=== PATIENT | male | born 1950 | race Caucasian/White ===

== ENCOUNTER 2016-10-06 12:28 | Emergency (ER) | payer MEDICARE ==
[2016-10-06] MEDS ORDERED: LABETALOL INJ 5 MG/ML VIAL IV ONE ×3 (12:45→15:13)
--- NOTE | 2016-10-06 12:48 | ED.PDOC ---
History of Present Illness - General Chief Complaint: Blood Pressure Problem Stated Complaint: elevated blood pressure,chest discomfort Time Seen by Provider: 10/06/16 12:38 Source: patient, RN notes reviewed, Vital Signs reviewed, old records Exam Limitations: no limitations - History of Present Illness Initial Comments: Patient came in because his BP at home was 196/110. HE took some cold medication yesterday. He does report mild chest pressure but denies any other symptoms. He was seen 09/09/16 for same but has not followed up with a primary care physician. Timing/Duration: 24 hours Severity: mild Improving Factors: nothing Worsening Factors: nothing Associated Symptoms: chest pain Allergies/Adverse Reactions: Allergies Epinephrine Allergy (Verified 09/09/16 18:38) Home Medications: Ambulatory Orders Diltiazem HCl Coated Beads [Cardizem LA] 120 mg PO DAILY #30 tab 10/06/16 Ramipril 10 mg PO DAILY 10/06/16 Review of Systems - Review of Systems Constitutional: States: no symptoms reported. Denies: chills, diaphoresis, fever, malaise, weakness EENTM: States: no symptoms reported Respiratory: States: no symptoms reported. Denies: cough, short of breath Cardiology: States: chest pain - Very mild - 1/10. Denies: edema, palpitations , syncope Gastrointestinal/Abdominal: States: no symptoms reported. Denies: nausea, vomiting Genitourinary: States: no symptoms reported Musculoskeletal: States: no symptoms reported Skin: States: no symptoms reported Neurological: States: no symptoms reported. Denies: headache, numbness, paresthesia Endocrine: States: no symptoms reported Past Medical History (General) - Patient Medical History Hx Hypertension: Yes Surgical History: no surgical history - Vaccination History Hx Tetanus, Diphtheria Vaccination: No Hx Influenza Vaccination: No Hx Pneumococcal Vaccination: Yes - Social History Hx Tobacco Use: Yes Hx Alcohol Use: No Hx Substance Use: No Hx Substance Use Treatment: No Hx Depression: No - Female History Patient : No Family Medical History - Family History Mother Family History: Unknown Physical Exam - Physical Exam General Appearance: Alert, Comfortable, No apparent distress, Well Developed, Well Groomed, Well Hydrated, Well Nourished Ears, Nose, Throat: hearing grossly normal, normal ENT inspection Neck: non-tender, full range of motion, supple, normal inspection Respiratory: chest non-tender, lungs clear, normal breath sounds, no respiratory distress, no accessory muscle use Cardiovascular/Chest: normal peripheral pulses, regular rate, rhythm, no edema, no gallop, no JVD, no murmur Peripheral Pulses: dorsalis pedis,right: 2+, dorsalis pedis,left: 2+ Gastrointestinal/Abdominal: normal bowel sounds, non tender, soft Extremity: normal range of motion, non-tender, normal inspection, no pedal edema Neurologic: no motor/sensory deficits, alert, normal mood/affect, oriented x 3 Skin Exam: normal color Lymphatic: no adenopathy Comments: Patient sitting up in bed working on his computer. No distress. Progress - Progress Progress: 10/06/16 14:23 BP is 155/102 after 20mg of Labetolol. Will start Amlodipine 5mg in addition to his Ramipril. Stressed importance of follow up with primary care doctor to get BP under control. 10/06/16 15:14 BP has bumped back up to 174/114. Will give another 20mg of Labetolol. 10/06/16 16:01 Patient took Ramipril 20mg PO this morning. Here he has been given Labetolol 40mg IV and Amlodipine 5mg po and his BP is still 189/115 P 82. Will try a dose of Cardizem 10/06/16 16:25 BP is now 160/99 P 66 10/06/16 16:40 BP now 156/96 Will d/c patient home with prescription for Cardizem instead of Amlodipine to add to his Ramipril. - EKG/XRAY/CT EKG: Sinus, nonspecific ST T wave Chg, Unchanged from - 09/09/16 Departure - Departure Clinical Impression: Hypertension Time of Disposition: 16:41 Disposition: Discharge to Home or Self Care Condition: Good Departure Forms: ED Discharge - Pt. Copy, Patient Portal Self Enrollment Instructions: DI for High Blood Pressure Diet: resume usual diet Referrals: Jermaine Edwards MD [Active Staff] - 10/10/16 Prescriptions: Diltiazem HCl Coated Beads [Cardizem LA] 120 mg PO DAILY #30 tab Home Medications: Ambulatory Orders Diltiazem HCl Coated Beads [Cardizem LA] 120 mg PO DAILY #30 tab 10/06/16 Ramipril 10 mg PO DAILY 10/06/16
[2016-10-06] MEDS ORDERED: amLODIPine BESYLATE 5 MG TAB PO ONE (14:24)
[2016-10-06 15:04] VITALS: O2SAT 95
[2016-10-06 16:19] VITALS: BP 190/109
[2016-10-06 16:50] VITALS: TEMP 98.6
== END 2016-10-06 16:50 | disposition home or self-care (01) ==
LOC: ER 12:28
DX: I10 Essential (primary) hypertension (principal); R07.89 Other chest pain; Z88.8 Allergy status to other drugs, medicaments and biological substances; Z87.891 Personal history of nicotine dependence; Z79.899 Other long term (current) drug therapy

== ENCOUNTER → 2016-10-27 | Outpatient (CLI) | payer MEDICARE | END | disposition home or self-care (01) | LOC: GMAM 10:17 | PROVIDERS: ATTEND Family Medicine | DX: Z12.5 Encounter for screening for malignant neoplasm of prostate (principal); I10 Essential (primary) hypertension ==

== ENCOUNTER → 2016-10-31 | Outpatient (CLI) | payer MEDICARE | LOC: GMAM 11:03 | PROVIDERS: ATTEND Family Medicine | DX: R31.29 Other microscopic hematuria (principal) ==

== ENCOUNTER → 2016-12-12 | Outpatient (CLI) | payer MEDICARE ==
--- NOTE | 2016-12-12 09:58 | CT ---
CT abdomen and pelvis without and with contrast Clinical history hematuria TECHNIQUE: Pre and postcontrast spiral CT with intravenous iodinated nonionic contrast. Coronal and sagittal reformatted images. FINDINGS: No hydronephrosis, nephrolithiasis, ureterolithiasis or bladder calculus No mass lesion of the kidneys, ureters or bladder. Prostate hypertrophy indenting the base the urinary bladder. Diffuse urinary bladder wall thickening likely from chronic low-grade bladder outlet obstruction 4 mm nodule right lung base. Adjacent linear subsegmental atelectasis. Linear subsegmental atelectasis left lung base. No edema, infiltrates or effusions. Heart size is normal Fatty infiltration of the liver without focal abnormality. No abnormality of the gallbladder. No biliary duct dilation Spleen and adrenal glands are normal. Fatty infiltrated pancreas without mass lesion or duct dilation Large intestine diverticulosis descending sigmoid colon without diverticulitis. Terminal ileum is normal. No abnormality of the stomach or small intestine Omentum, mesentery and retroperitoneum are normal No pelvic soft tissue mass lesion adenopathy or free fluid No acute bony abnormality. IMPRESSION: No renal stone disease. No mass lesion of the kidneys, ureters or bladder Prostate hypertrophy and thickened urinary bladder wall likely from chronic low-grade bladder outlet obstruction. Fatty infiltration of the liver 4 mm nodule right lung base. As per Fleischner Society guidelines for follow-up and management of pulmonary nodules: For patient at low risk (minimal or absent history of smoking and of other known risk factors), recommend follow-up chest CT at 12 months; if unchanged, no further follow-up. For patient at high risk (history of smoking or of other known risk factors), recommend initial follow-up chest CT at 6-12 months, then at 18-24 months if no interval change. Electronically signed by: Jermaine Rizo MD 12/12/2016 9:57 AM CDT
== END ==
LOC: CT 08:10
PROVIDERS: ATTEND Family Medicine
DX: R31.9 Hematuria, unspecified (principal); N40.0 Benign prostatic hyperplasia without lower urinary tract symptoms; R91.1 Solitary pulmonary nodule; K76.0 Fatty (change of) liver, not elsewhere classified

== ENCOUNTER → 2017-02-06 | Outpatient (CLI) | payer MEDICARE ==
--- NOTE | 2017-02-06 11:03 | CT ---
EXAM DESCRIPTION: Chest w/Contrast CLINICAL HISTORY: 66 years, Male, PULMONARY NODULE COMPARISON: December 12, 2016 TECHNIQUE: Thin-section axial CT images are obtained during rapid bolus administration of 100 mL of Isovue 300 IV contrast media. Reconstructed MPR images are created and reviewed as well. This exam was performed according to our departmental dose-optimization program, which includes automated exposure control, adjustment of the mA and/or kV according to patient size and/or use of iterative reconstruction technique. FINDINGS: There is a stable to decreased size of the small subpleural nodule in the right posterior lung base. There is an area of scarring along the left major fissure which is slightly more evident on today's examination possibly secondary to slice location. There is no new worrisome finding. There is no effusion. Heart and mediastinum are unremarkable. Diffuse fatty infiltration of the liver. IMPRESSION: Worrisome change in the right posterior basilar subpleural nodule which is almost certainly benign. Follow-up as per prior recommendations. Electronically signed by: Chong Wen MD 02/06/2017 11:01 AM CDT
== END | disposition home or self-care (01) ==
LOC: CT 07:18
PROVIDERS: ATTEND Family Medicine
DX: R91.1 Solitary pulmonary nodule (principal)

== ENCOUNTER → 2017-04-13 | Outpatient (CLI) | payer MEDICARE | LOC: MRI 07:06 | PROVIDERS: ATTEND Psychiatry & Neurology Neurology | DX: M45.0 Ankylosing spondylitis of multiple sites in spine (principal); E11.9 Type 2 diabetes mellitus without complications; I67.9 Cerebrovascular disease, unspecified; K50.90 Crohn's disease, unspecified, without complications; M15.0 Primary generalized (osteo)arthritis; F01.50 Vascular dementia, unspecified severity, without behavioral disturbance, psychotic disturbance, mood disturbance, and anxiety; G30.9 Alzheimer's disease, unspecified; F90.9 Attention-deficit hyperactivity disorder, unspecified type; F81.9 Developmental disorder of scholastic skills, unspecified; R53.83 Other fatigue; R50.9 Fever, unspecified; M79.A9 Nontraumatic compartment syndrome of other sites; M10.9 Gout, unspecified; E03.9 Hypothyroidism, unspecified; M51.16 Intervertebral disc disorders with radiculopathy, lumbar region; M35.1 Other overlap syndromes; G35 Multiple sclerosis; M79.1 Myalgia; G70.00 Myasthenia gravis without (acute) exacerbation; G04.89 Other myelitis; G72.9 Myopathy, unspecified; M32.10 Systemic lupus erythematosus, organ or system involvement unspecified; M31.6 Other giant cell arteritis ==

== ENCOUNTER → 2017-04-14 | Outpatient (CLI) | payer MEDICARE ==
--- NOTE | 2017-04-17 09:04 | MRI ---
EXAM DESCRIPTION: Cervical Spine w/wo Contrast CLINICAL HISTORY: Acute transverse myelitis COMPARISON: None Available. TECHNIQUE: MRI of the cervical spine is performed according to our usual protocol. Post gadolinium imaging is performed as well. FINDINGS: There is good alignment of the cervical spine. There is no vertebral abnormality. The cervical junction unremarkable. Healed spinal cord has a normal appearance. There are no areas of edema or demyelination and there is no abnormal post gadolinium enhancement of the cord. C2-3: the disc is well hydrated. There is no loss of height. There is no bulging. The facets are unremarkable with no significant hypertrophy. There is no stenosis or impingement. C3-4: the disc is well hydrated. There is no loss of height. There is no bulging. The facets are unremarkable with no significant hypertrophy. There is no stenosis or impingement. C4-5: The disc shows desiccation with early narrowing. There is right-sided uncovertebral hypertrophic arthropathy and significant right side facet arthropathy with hypertrophy is well. This results in moderate bony stenosis of the right C5 neural foramen. There is no central stenosis. C5-6: Marked narrowing and desiccation of the discs with minimal disc osteophyte complex. Bilateral hypertrophic uncinate arthropathy right greater than left. Mild left and moderate right facet arthropathy with hypertrophy. These changes result in moderately severe right and moderate left six foraminal stenosis. No central stenosis observed. C6-7: Marked narrowing and desiccation of the discs with a minor annular bulge. Moderate hypertrophic uncinate arthropathy on both sides. Early hypertrophic facet arthropathy. This results in mild bilateral C7 foraminal stenosis. No central stenosis. C7-T1: Early disc narrowing and desiccation with minor annular bulging. Facets and uncinate unremarkable. No stenosis or impingement. IMPRESSION: 1. Negative for signal abnormality in the spinal cord 2. Cervical spondylosis with bilateral C5, C6, and C7 foraminal stenosis Electronically signed by: Chong Wen MD 04/17/2017 9:03 AM CDT Workstation: [id number]
--- NOTE | 2017-04-17 09:12 | MRI ---
EXAM DESCRIPTION: Thoracic Spine w/wo Contrast CLINICAL HISTORY: Acute transverse myelitis COMPARISON: None Available. TECHNIQUE: MRI thoracic is performed according to our usual protocol. Post gadolinium imaging performed as well. FINDINGS: There is good alignment of thoracic spine. There is no thoracic vertebral pathology. No significant disc changes noted other than mild diffuse age-related disc desiccation. There is no disc bulging or disc herniation. The thoracic cord has a normal appearance. No signal abnormality in the cord and no post gadolinium enhancement cord. There is no canal or foraminal compromise. IMPRESSION: 1. Normal study Electronically signed by: Chong Wen MD 04/17/2017 9:11 AM CDT
== END | disposition home or self-care (01) ==
LOC: MRI 06:54
PROVIDERS: ATTEND Psychiatry & Neurology Neurology
DX: G37.3 Acute transverse myelitis in demyelinating disease of central nervous system (principal); E11.9 Type 2 diabetes mellitus without complications; M45.0 Ankylosing spondylitis of multiple sites in spine; R53.83 Other fatigue; R50.9 Fever, unspecified

== ENCOUNTER → 2018-01-08 | Outpatient (CLI) | payer MEDICARE | LOC: GMAM 10:51 | PROVIDERS: ATTEND Family Medicine | DX: Z12.5 Encounter for screening for malignant neoplasm of prostate (principal) ==

== ENCOUNTER → 2018-02-21 | Outpatient (CLI) | payer MEDICARE ==
--- NOTE | 2018-02-21 10:05 | CT ---
EXAM DESCRIPTION: Chest w/Contrast CLINICAL HISTORY: 67 years Male, SOLITARY PULMONARY NODULE COMPARISON: None available TECHNIQUE: Contiguous thin section axial images through the chest were obtained after the administration of intravenous contrast. Sagittal and coronal reconstructions were reviewed. FINDINGS: Stable 7 mm hypodense nodule in the right thyroid lobe. The visualized supraclavicular regions appear normal. No evidence of abnormally enlarged mediastinal, hilar or axillary lymphadenopathy. Trachea is midline and the central tracheobronchial tree is patent. The lungs are clear with no acute consolidation or hyperinflation. Previously identified nodule in the posterior basilar segment of the right lower lobe is not seen on today's examination. No new suspicious nodules or masses are noted. Persistent atelectasis along the right major fissure. No evidence of pleural effusions. The heart is normal in size with no pericardial effusion. The visualized aorta is nonaneurysmal with no significant atherosclerosis. The superior vena cava is normal in size and caliber. Mild coronary artery atherosclerosis. Thickening of the distal esophagus could be secondary to reflux. The liver demonstrates diffuse fatty infiltration. No intrahepatic biliary ductal dilatation or focal masses. Degenerative changes are identified throughout the thoracic spine. IMPRESSION: 1. Previously identified nodule in the posterior basilar segment of the right lower lobe is not seen on today's examination and is completely resolved. No new suspicious nodules are identified. 2. Mild reflux esophagitis. 3. Hepatic steatosis. This exam was performed according to our departmental dose-optimization program, which includes automated exposure control, adjustment of the mA and/or kV according to patient size and/or use of iterative reconstruction technique. Electronically signed by: Stephanie Smith MD 02/21/2018 10:04 AM CDT
== END ==
LOC: CT 08:00
PROVIDERS: ATTEND Family Medicine
DX: R91.1 Solitary pulmonary nodule (principal); K20.9 Esophagitis, unspecified; K76.0 Fatty (change of) liver, not elsewhere classified

== ENCOUNTER → 2018-03-20 | Outpatient (CLI) | payer MEDICARE | LOC: GMAM 10:34 | PROVIDERS: ATTEND Family Medicine | DX: R97.20 Elevated prostate specific antigen [PSA] (principal); R53.83 Other fatigue ==

== ENCOUNTER → 2018-09-04 | Outpatient (CLI) | payer MEDICARE | LOC: GMAM 11:22 | PROVIDERS: ATTEND Family Medicine | DX: E29.1 Testicular hypofunction (principal) ==

== ENCOUNTER → 2018-09-05 | Outpatient (CLI) | payer MEDICARE | LOC: LAB.O 12:40 | PROVIDERS: ATTEND Family Medicine | DX: D69.59 Other secondary thrombocytopenia (principal) ==

== ENCOUNTER → 2019-12-27 | Outpatient (CLI) | payer MEDICARE | LOC: GMAM 12:01 | PROVIDERS: ATTEND Family Medicine | DX: Z12.5 Encounter for screening for malignant neoplasm of prostate (principal) ==

== ENCOUNTER → 2020-02-19 | Outpatient (CLI) | payer MEDICARE | LOC: GMAM 11:58 | PROVIDERS: ATTEND Family Medicine | DX: R06.02 Shortness of breath (principal) ==

== ENCOUNTER → 2020-02-26 | Outpatient (CLI) | payer MEDICARE, OTHER ==
--- NOTE | 2020-02-26 09:53 | CT ---
EXAM DESCRIPTION: CTA Chest CLINICAL HISTORY: 69 years Male, SOB TECHNIQUE: Volumetric CT angiographic data acquisition of the thorax was obtained using the pulmonary embolism protocol after administration of IV contrast. Standard axial and coronal and CT angiographic MIP sagittal and coronal images are submitted. This exam was performed according to our departmental dose-optimization program, which includes automated exposure control, adjustment of the mA and/or kV according to patient size and/or use of iterative reconstruction technique. COMPARISON: December 21, 2018 FINDINGS: The thyroid gland is unremarkable. No axillary adenopathy. Normal caliber thoracic aorta. Coronary artery calcifications. No pericardial effusion. No evidence of acute process in the visualized upper abdomen. No mediastinal adenopathy. No pulmonary embolus. No pneumothorax. No pleural effusion. No focal consolidation. No suspicious pulmonary nodule. Scattered areas of scarring and atelectasis. No acute or suspicious osseous abnormality. Scattered degenerative changes present. IMPRESSION: No evidence of acute process in the chest. Specifically no pulmonary embolus. Electronically signed by: Stanton Michael MD 02/26/2020 9:52 AM CDT
== END ==
LOC: CT 08:00
PROVIDERS: ATTEND Family Medicine
DX: R06.02 Shortness of breath (principal)

== ENCOUNTER → 2020-02-27 | Outpatient (CLI) | payer MEDICARE, OTHER | LOC: ECHO 08:00 | PROVIDERS: ATTEND Family Medicine | DX: R06.09 Other forms of dyspnea (principal); I51.89 Other ill-defined heart diseases; I51.7 Cardiomegaly ==

== ENCOUNTER → 2020-10-02 | Outpatient (CLI) | payer MEDICARE, OTHER | LOC: GMAM 12:00 | PROVIDERS: ATTEND Family Medicine | DX: E29.1 Testicular hypofunction (principal); R73.9 Hyperglycemia, unspecified; I10 Essential (primary) hypertension ==